=== PATIENT | female | born 2000 | race Caucasian/White ===

== ENCOUNTER 2021-05-06 11:54 | Emergency (ER) | payer BC ==
--- NOTE | 2021-05-06 12:14 | EDM.PDOC ---
ED HPI GENERAL MEDICAL PROBLEM - General Chief Complaint: Cardiovascular Problem Stated Complaint: ELEVATED HEART RATE Time Seen by Provider: 05/06/21 12:08 - History of Present Illness INITIAL COMMENTS - FREE TEXT/NARRATIVE: History of present illness: [] Patient is feeling of her heart fluttering for 2 days. Nothing makes it better or worse. She is short of breath worse with exertion. She has no diaphoresis or nausea. The patient says it feels like her heart flutters and it is almost constant including during the time in which she had her EKG done here. This make patient has chronic arthritis with medical marijuana card but does not smoke tobacco. She is not diabetic nor treated for hypertension or cholesterol. Family history is negative for significant arrhythmias. Review of systems: As per history of present illness and below otherwise all systems reviewed and negative. Past medical history: As per history of present illness and as reviewed below otherwise noncontributory. Surgical history: As per history of present illness and as reviewed below otherwise noncontributory. Social history: No reported history of drug or alcohol abuse. Family history: As per history of present illness and as reviewed below otherwise noncontributory. Physical exam: Constitutional - well developed, well-nourished and in no acute distress HEENT - normocephalic, no evidence of trauma - external nose and mouth normal - no mass in neck and no JVD - mucosae moist EYES - full EOM, PERRL, no icterus - no evidence of inflammation, injection, or drainage Respiratory - no respiratory distress, equal bilateral expansion, lungs clear to auscultation and no abnormal lung sounds Cardiovascular - Regular Rhythm with S1 and S2 appreciated and no murmur, gallop or rub. GI - abdomen soft without distension or organomegaly - normal bowel sounds - no guard or rebound Musculoskeletal no gross deformity of long bones or joints - no tenderness, swelling or edema Neurologic - Alert and oriented times four - CN II-XII grossly intact - motor sensory and coordination symmetrically normal Psychiatric - appropriate mood and affect with normal thought content Hematologic - No petechiae or purpura - mucosa appropriate color and sclera not pale - normal nail bed color and refill Integument - no rash or evidence of trauma - normal turgor Diagnostics: [] Therapeutics: [] Impression: [] Plan: [] Definitive disposition and diagnosis as appropriate pending reevaluation and review of above. - Related Data Allergies Allergy/AdvReac Type Severity Reaction Status Date / Time No Known Allergies Allergy Verified 05/06/21 12:06 Home Meds: Home Meds Levothyroxine [Synthroid] 1 tab PO ACBREAKFAST 05/06/21 [History] Omeprazole 1 tab PO DAILY 05/06/21 [History] Sertraline [Zoloft] 1 tab PO DAILY 05/06/21 [History] ED ROS GENERAL - Review of Systems Review Of Systems: Comprehensive ROS is negative, except as noted in HPI. ED EXAM, GENERAL - Physical Exam Exam: See Below Free Text/Narrative:: My physical exam is in the HPI #1 Interpretation EKG Interpretation Comments: KG done 05/06/2021 at 12:08 PM rhythm was misread by the computer as atrial fibrillation. Patient is in a sinus rhythm with a PVC. Heart rate 91 MO interval 160 QRS axis 81 QRS shows an RSR prime in V1 and V2 ST shows minimal depression which may be artifact because of baseline wander in V3. Impression no acute injury Course - Vital Signs Last Recorded V/S: Last Vital Signs Temp 36.4 C 05/06/21 12:10 Pulse 96 05/06/21 12:10 Resp 18 05/06/21 12:10 BP 120/75 05/06/21 12:10 Pulse Ox 97 05/06/21 12:10 - Orders/Labs/Meds Labs: Laboratory Tests 05/06/21 05/06/21 05/06/21 Range/Units 12:39 12:39 12:39 WBC 7.34 (4.0-11.0) K/uL RBC 4.96 (4.30-5.90) M/uL Hgb 15.2 (12.0-16.0) g/dL Hct 44.1 (36.0-46.0) % MCV 88.9 (80.0-98.0) fL MCH 30.6 (27.0-32.0) pg MCHC 34.5 (31.0-37.0) g/dL RDW Std Deviation 41.0 (28.0-62.0) fl RDW Coeff of Eve 13 (11.0-15.0) % Plt Count 275 (150-400) K/uL MPV 9.40 (7.40-12.00) fL Neut % (Auto) 61.2 (48.0-80.0) % Lymph % (Auto) 32.8 (16.0-40.0) % Gooding % (Auto) 4.8 (0.0-15.0) % Eos % (Auto) 1.1 (0.0-7.0) % Baso % (Auto) 0.1 (0.0-1.5) % Neut # (Auto) 4.5 (1.4-5.7) K/uL Lymph # (Auto) 2.4 (0.6-2.4) K/uL Gooding # (Auto) 0.4 (0.0-0.8) K/uL Eos # (Auto) 0.1 (0.0-0.7) K/uL Baso # (Auto) 0.0 (0.0-0.1) K/uL Nucleated RBC % 0.0 /100WBC Nucleated RBCs # 0 K/uL D-Dimer, Quantitative (0.0-0.50) mg/L FEU Sodium 138 (136-145) mmol/L Potassium 3.7 (3.5-5.1) mmol/L Chloride 103 (98-107) mmol/L Carbon Dioxide 27.3 (21.0-32.0) mmol/L BUN 11 (7.0-18.0) mg/dL Creatinine 0.8 (0.6-1.0) mg/dL Est Cr Clr Drug Dosing TNP Estimated GFR (MDRD) > 60.0 ml/min Glucose 108 H (74-106) mg/dL Calcium 8.7 (8.5-10.1) mg/dL Magnesium 2.0 (1.8-2.4) mg/dL Total Bilirubin 0.3 (0.2-1.0) mg/dL AST 14 L (15-37) IU/L ALT 18 (14-63) IU/L Alkaline Phosphatase 87 (46-116) U/L Troponin I < 0.050 (0.000-0.056) ng/mL Total Protein 7.5 (6.4-8.2) g/dL Albumin 3.6 (3.4-5.0) g/dL Globulin 3.9 (2.6-4.0) g/dL Albumin/Globulin Ratio 0.9 (0.9-1.6) TSH, Ultra Sensitive (0.36-3.74) uIU/mL HCG, Qual NEGATIVE (NEG) 05/06/21 05/06/21 Range/Units 12:39 12:39 WBC (4.0-11.0) K/uL RBC (4.30-5.90) M/uL Hgb (12.0-16.0) g/dL Hct (36.0-46.0) % MCV (80.0-98.0) fL MCH (27.0-32.0) pg MCHC (31.0-37.0) g/dL RDW Std Deviation (28.0-62.0) fl RDW Coeff of Eve (11.0-15.0) % Plt Count (150-400) K/uL MPV (7.40-12.00) fL Neut % (Auto) (48.0-80.0) % Lymph % (Auto) (16.0-40.0) % Gooding % (Auto) (0.0-15.0) % Eos % (Auto) (0.0-7.0) % Baso % (Auto) (0.0-1.5) % Neut # (Auto) (1.4-5.7) K/uL Lymph # (Auto) (0.6-2.4) K/uL Gooding # (Auto) (0.0-0.8) K/uL Eos # (Auto) (0.0-0.7) K/uL Baso # (Auto) (0.0-0.1) K/uL Nucleated RBC % /100WBC Nucleated RBCs # K/uL D-Dimer, Quantitative 0.34 (0.0-0.50) mg/L FEU Sodium (136-145) mmol/L Potassium (3.5-5.1) mmol/L Chloride (98-107) mmol/L Carbon Dioxide (21.0-32.0) mmol/L BUN (7.0-18.0) mg/dL Creatinine (0.6-1.0) mg/dL Est Cr Clr Drug Dosing Estimated GFR (MDRD) ml/min Glucose (74-106) mg/dL Calcium (8.5-10.1) mg/dL Magnesium (1.8-2.4) mg/dL Total Bilirubin (0.2-1.0) mg/dL AST (15-37) IU/L ALT (14-63) IU/L Alkaline Phosphatase (46-116) U/L Troponin I (0.000-0.056) ng/mL Total Protein (6.4-8.2) g/dL Albumin (3.4-5.0) g/dL Globulin (2.6-4.0) g/dL Albumin/Globulin Ratio (0.9-1.6) TSH, Ultra Sensitive 1.29 (0.36-3.74) uIU/mL HCG, Qual (NEG) Departure - Departure Time of Disposition: 13:34 Disposition: Home, Self-Care 01 Condition: Good Clinical Impression: Palpitations, Chest pain Instructions: Nonspecific Chest Pain, Adult, [id number], Palpitations Referrals: PCP,None [Primary Care Provider] - Forms: ED Department Discharge Additional Instructions: Make an appointment with primary care or cardiology so that you can follow-up on your Zio patch. Return if any prolonged significant worse symptoms. [facility] - Primary Care [address] [place] [address] [id number] [facility] - cardiology [address] [place] [id number] The following information is given to patients seen in the emergency department who are being discharged to home. This information is to outline your options for follow-up care. We provide all patients seen in our emergency department with a follow-up referral. The need for follow-up, as well as the timing and circumstances, are variable depending upon the specifics of your emergency department visit. If you don't have a primary care physician on staff, we will provide you with a referral. We always advise you to contact your personal physician following an emergency department visit to inform them of the circumstance of the visit and for follow-up with them and/or the need for any referrals to a consulting specialist. The emergency department will also refer you to a specialist when appropriate. This referral assures that you have the opportunity for follow-up care with a specialist. All of these measure are taken in an effort to provide you with optimal care, which includes your follow-up. Under all circumstances we always encourage you to contact your private physician who remains a resource for coordinating your care. When calling for follow-up care, please make the office aware that this follow-up is from your recent emergency room visit. If for any reason you are refused follow-up, please contact the [facility] Emergency Department at and asked to speak to the emergency department charge nurse. Sepsis Event Note (ED) - Focused Exam Vital Signs: Vital Signs Temp Pulse Resp BP Pulse Ox 05/06/21 12:10 36.4 C 96 18 120/75 97
[2021-05-06 13:14] LABS: BLOOD UREA NITROGEN,BUN 11 mg/dL (7.0-18.0); CARBON DIOXIDE,CO2 27.3 mmol/L (21.0-32.0); CHLORIDE,CL 103 mmol/L (98-107); GLUCOSE RANDOM 108 mg/dL (74-106); POTASSIUM,K 3.7 mmol/L (3.5-5.1); SODIUM,NA 138 mmol/L (136-145)
--- NOTE | 2021-05-06 13:21 | CR ---
INDICATION: Chest pressure. TECHNIQUE: Chest 1 view. COMPARISON: None FINDINGS: Cardiovascular and mediastinum: Heart size and vasculature are normal in caliber and appearance. Mediastinum is within normal limits. Lungs and pleural space: Lungs are clear. No sign of infiltrate or mass. No sign of pleural effusion. No pneumothorax. Bones and soft tissues: No significant findings. IMPRESSION: Lungs are clear. Dictated by Sai Marcelo MD @ 05/06/2021 1:18:56 PM (Electronically Signed)
== END 2021-05-06 13:51 | disposition home or self-care (01) ==
LOC: MW.ED 11:54
DX: R00.2 Palpitations (principal); R07.9 Chest pain, unspecified
CPT/HCPCS: 36415; 71045; 71045-26; 80053; 83735; 84443; 84484; 84703; 85025; 85379; 99285-25

== ENCOUNTER 2023-07-02 09:26 | Emergency (ER) | payer BC ==
[2023-07-02] MEDS ORDERED: Ondansetron 4 MG/2 ML SDV IVPUSH ONE (09:40)
[2023-07-02] MEDS ORDERED: Sodium Chloride 0.9% 1,000 ML IV ONE (09:40)
[2023-07-02 10:11] LABS: BASOPHILS ABSOLUTE AUTO 0.05 K/uL (0.00-0.20); BASOPHILS PERCENT AUTO 0.6 % (0.0-1.0); EOSINOPHILS ABSOLUTE AUTO 0.29 K/uL (0.00-0.45); EOSINOPHILS PERCENT AUTO 3.5 % (0.0-6.0); HEMATOCRIT 45.5 % (37.0-47.0); HEMOGLOBIN 16.3 g/dL (12.0-16.0); IMMATURE GRAN ABSOLUTE AUTO 0.03 K/uL (0.00-0.05); IMMATURE GRAN PERCENT AUTO 0.4 % (0.0-0.4); LYMPHOCYTES ABSOLUTE AUTO 2.89 K/uL (1.00-4.80); LYMPHOCYTES PERCENT AUTO 34.9 % (24.0-44.0); MEAN CORPUSCULAR HEMOGLOBIN 31.3 pg (28.0-32.0); MEAN CORPUSCULAR HGB CONC 35.8 g/dL (32.0-36.0); MEAN CORPUSCULAR VOLUME 87.5 fL (83.0-99.0); MEAN PLATELET VOLUME 9.1 fL (9.4-12.3); MONOCYTES ABSOLUTE AUTO 0.45 K/uL (0.00-0.80); MONOCYTES PERCENT AUTO 5.4 % (0.0-8.0); NEUTROPHILS ABSOLUTE AUTO 4.58 K/uL (1.80-7.70); NEUTROPHILS PERCENT AUTO 55.2 % (41.0-71.0); PLATELET COUNT,PLT 291 K/uL (150-400); WHITE BLOOD CELL COUNT,WBC 8.29 K/uL (3.9-11.3)
[2023-07-02 10:20] LABS: INR 1.02 (0.86-1.11)
[2023-07-02 10:29] LABS: BILIRUBIN,URINE NEGATIVE (NEGATIVE); COLOR,URINE YELLOW; GLUCOSE,URINE NEGATIVE (NEGATIVE); KETONES,URINE NEGATIVE (NEGATIVE); LEUKOCYTE ESTERASE,URINE SMALL (NEGATIVE); NITRITE,URINE NEGATIVE (NEGATIVE); OCCULT BLOOD,URINE LARGE (NEGATIVE); PROTEIN,URINE NEGATIVE (NEGATIVE)
[2023-07-02 10:44] LABS: APPEARANCE,URINE SLT CLOUDY; BACTERIA,URINE FEW (NEGATIVE); EPITHELIAL CELLS,URINE FEW (NONE-FEW); WBC,URINE 0-2 (0-5/HPF)
[2023-07-02 10:45] LABS: AMORPHOUS SEDIMENT,URINE FEW (NEGATIVE)
[2023-07-02 10:53] LABS: A/G RATIO 1.3 (0.9-1.6); ALBUMIN 4.4 g/dL (3.4-5.0); BILIRUBIN TOTAL 0.7 mg/dL (0.2-1.0); CALCIUM 9.6 mg/dL (8.5-10.1); CARBON DIOXIDE,CO2 26.2 mmol/L (21.0-32.0); CREATININE 0.9 mg/dL (0.6-1.0); EST CRCL DRUG DOSING (CG) 88.23 mL/min; POTASSIUM,K 3.3 mmol/L (3.5-5.1); PROTEIN TOTAL,TP 7.9 g/dL (6.4-8.2); TSH ULTRASENSITIVE 2.68 uIU/mL (0.36-3.74)
[2023-07-02 11:06] LABS: CORONAVIRUS COVID-19 NAA NEGATIVE (NEGATIVE); INFLUENZA A NAA NEGATIVE (NEGATIVE); INFLUENZA B NAA NEGATIVE (NEGATIVE); RESPIRATORY SYNCYTIAL VIR NAA NEGATIVE (NEGATIVE)
[2023-07-02 11:19] LABS: CANDIDA DNA PROBE NEGATIVE (NEGATIVE); GARDNERELLA DNA PROBE NEGATIVE (NEGATIVE); TRICHOMONAS DNA PROBE NEGATIVE (NEGATIVE)
[2023-07-02 12:04] LABS: C. TRACHOMATIS BY PCR NOT DETECTED; N. GONORRHOEAE BY PCR NOT DETECTED
== END 2023-07-02 12:48 | disposition home or self-care (01) ==
LOC: MW.ED 09:26
DX: R55 Syncope and collapse (principal); Z79.899 Other long term (current) drug therapy; Z20.822 Contact with and (suspected) exposure to COVID-19
CPT/HCPCS: 0241U; 36415; 80053; 81001; 83690; 84443; 84703; 85025; 85610; 86850; 86900; 86901; 87086; 87480; 87491; 87510; 87591; 87660; 93005; 96361; 96374; 99284; J2405; J7030

== ENCOUNTER 2024-04-06 15:06 | Emergency (ER) | payer BC ==
[2024-04-06] MEDS: Sodium Chloride 0.9% 1,000 ML IV ONE (15:27)
[2024-04-06] MEDS: Famotidine 20 MG/2 ML SDV IVPUSH ONE (15:27)
[2024-04-06] MEDS: diphenhydrAMINE 50 MG/ML SDV IVPUSH ONE (15:27)
[2024-04-06 15:28] LABS: BASOPHILS ABSOLUTE AUTO 0.02 K/uL (0.00-0.20); BASOPHILS PERCENT AUTO 0.2 % (0.0-1.0); EOSINOPHILS ABSOLUTE AUTO 0.05 K/uL (0.00-0.45); EOSINOPHILS PERCENT AUTO 0.5 % (0.0-6.0); HEMATOCRIT 34.8 % (37.0-47.0); HEMOGLOBIN 12.4 g/dL (12.0-16.0); IMMATURE GRAN ABSOLUTE AUTO 0.08 K/uL (0.00-0.05); IMMATURE GRAN PERCENT AUTO 0.8 % (0.0-0.4); LYMPHOCYTES ABSOLUTE AUTO 2.16 K/uL (1.00-4.80); LYMPHOCYTES PERCENT AUTO 21.6 % (24.0-44.0); MEAN CORPUSCULAR HEMOGLOBIN 31.6 pg (28.0-32.0); MEAN CORPUSCULAR HGB CONC 35.6 g/dL (32.0-36.0); MEAN CORPUSCULAR VOLUME 88.5 fL (83.0-99.0); MEAN PLATELET VOLUME 9.8 fL (9.4-12.3); MONOCYTES ABSOLUTE AUTO 0.56 K/uL (0.00-0.80); MONOCYTES PERCENT AUTO 5.6 % (0.0-8.0); NEUTROPHILS ABSOLUTE AUTO 7.15 K/uL (1.80-7.70); NEUTROPHILS PERCENT AUTO 71.3 % (41.0-71.0); PLATELET COUNT,PLT 214 K/uL (150-400); RED BLOOD CELL COUNT 3.93 M/uL (4.10-5.30); WHITE BLOOD CELL COUNT,WBC 10.02 K/uL (3.9-11.3)
[2024-04-06 15:57] LABS: A/G RATIO 0.7 (0.9-1.6); ALBUMIN 2.5 g/dL (3.4-5.0); BILIRUBIN TOTAL 0.3 mg/dL (0.2-1.0); CALCIUM 8.7 mg/dL (8.5-10.1); CREATININE 0.8 mg/dL (0.6-1.0); EST CRCL DRUG DOSING (CG) 98.41 mL/min; POTASSIUM,K 3.4 mmol/L (3.5-5.1)
[2024-04-06 16:06] LABS: CARBON DIOXIDE,CO2 23.4 mmol/L (21.0-32.0)
== END 2024-04-06 17:00 | disposition home or self-care (01) ==
LOC: MW.ED 15:06
DX: O99.713 Diseases of the skin and subcutaneous tissue complicating pregnancy, third trimester (principal); T63.441A Toxic effect of venom of bees, accidental (unintentional), initial encounter; Z79.899 Other long term (current) drug therapy; Z91.030 Bee allergy status; Z3A.32 32 weeks gestation of pregnancy
CPT/HCPCS: 36415; 80053; 85025; 96361; 96374; 96375; 99283; J1200; J3490; J7030; 99284

== ENCOUNTER 2024-05-08 21:40 | Inpatient (IN) | payer BC ==
[2024-05-08] MEDS ORDERED: Sodium Chloride 0.9% 2.5 ML Syringe FLUSH PRN (22:16)
[2024-05-08] MEDS ORDERED: Sodium Chloride 0.9% 10 ML Syringe FLUSH PRN (22:16)
[2024-05-08] MEDS ORDERED: Terbutaline 1 MG/ML SDV SUBCUT PRN (22:16)
[2024-05-08] MEDS ORDERED: Calcium Gluconate 10% 1 GM/10 ML SDV IV PRN (22:16)
[2024-05-08] MEDS ORDERED: Sodium Chloride 0.9% 20 ML SDV IV PRN (22:16)
[2024-05-08] MEDS ORDERED: Lidocaine 1% 50 ML MDV INJECT PRN (22:27)
[2024-05-08] MEDS ORDERED: Water For Irrigation,Sterile 1,000 ML Container IRR PRN (22:27)
[2024-05-08] MEDS ORDERED: Butorphanol 2 MG/ML SDV IVPUSH PRN (22:27)
[2024-05-08] MEDS ORDERED: Misoprostol 200 MCG Tab PO PRN (22:27)
[2024-05-08] MEDS ORDERED: Carboprost Tromethamine 250 MCG/1 mL Vial IM PRN (22:27)
[2024-05-08] MEDS ORDERED: Ondansetron 4 MG/2 ML SDV IVPUSH PRN (22:27)
[2024-05-08] MEDS ORDERED: Oxytocin/0.9 % Sodium Chloride 30 UNIT/500 ML BAG IV SCH (22:30)
[2024-05-08] MEDS ORDERED: Nalbuphine 10 MG/1 ML Vial IVPUSH ONE (22:31)
[2024-05-08] MEDS: Lactated Ringers 1,000 ML IV SCH (23:24)
[2024-05-08] MEDS: Ampicillin 2 GM in Sodium Chloride 0.9% 100 ML IV ONE (23:24)
[2024-05-08] MEDS: Misoprostol 25 MCG (1/4 of 100 MCG) Tab VAG PRN (23:59)
[2024-05-09] MEDS ORDERED: Acetaminophen 325 MG Tab PO PRN (00:02)
[2024-05-09 00:07] LABS: BASOPHILS ABSOLUTE AUTO 0.05 K/uL (0.00-0.20); BASOPHILS PERCENT AUTO 0.4 % (0.0-1.0); EOSINOPHILS ABSOLUTE AUTO 0.05 K/uL (0.00-0.45); EOSINOPHILS PERCENT AUTO 0.4 % (0.0-6.0); HEMOGLOBIN 12.7 g/dL (12.0-16.0); IMMATURE GRAN ABSOLUTE AUTO 0.28 K/uL (0.00-0.05); IMMATURE GRAN PERCENT AUTO 2.3 % (0.0-0.4); LYMPHOCYTES ABSOLUTE AUTO 3.02 K/uL (1.00-4.80); LYMPHOCYTES PERCENT AUTO 24.7 % (24.0-44.0); MEAN CORPUSCULAR HEMOGLOBIN 31.4 pg (28.0-32.0); MEAN CORPUSCULAR HGB CONC 35.3 g/dL (32.0-36.0); MEAN CORPUSCULAR VOLUME 89.1 fL (83.0-99.0); MEAN PLATELET VOLUME 10.7 fL (9.4-12.3); MONOCYTES PERCENT AUTO 5.7 % (0.0-8.0); NEUTROPHILS ABSOLUTE AUTO 8.14 K/uL (1.80-7.70); NEUTROPHILS PERCENT AUTO 66.5 % (41.0-71.0); PLATELET COUNT,PLT 218 K/uL (150-400); RED BLOOD CELL COUNT 4.04 M/uL (4.10-5.30); WHITE BLOOD CELL COUNT,WBC 12.24 K/uL (3.9-11.3)
[2024-05-09] MEDS: Magnesium Sulfate/Water Premix 4 GM in Premix Bag 1 BAG IV ONE (00:19)
[2024-05-09] MEDS: Magnesium Sulfate/Water Premix 20 GM/500 ML BAG IV SCH (00:38)
[2024-05-09 00:40] LABS: A/G RATIO 0.9 (0.9-1.6); ALANINE AMINOTRANSFERASE,ALT 16 IU/L (14-63); ALBUMIN 2.7 g/dL (3.4-5.0); ALKALINE PHOSPHATASE 121 U/L (46-116); ASPARTATE AMNIOTRANSFERASE,AST 16 IU/L (15-37); BILIRUBIN TOTAL 0.2 mg/dL (0.2-1.0); BLOOD UREA NITROGEN,BUN 14 mg/dL (7.0-18.0); CALCIUM 9.2 mg/dL (8.5-10.1); CARBON DIOXIDE,CO2 24.7 mmol/L (21.0-32.0); CHLORIDE,CL 106 mmol/L (98-107); CREATININE 0.9 mg/dL (0.6-1.0); GLUCOSE RANDOM 76 mg/dL (74-106); LACTATE DEHYDROGENASE,LDH 162 U/L (81-234); POTASSIUM,K 4.1 mmol/L (3.5-5.1); PROTEIN TOTAL,TP 5.8 g/dL (6.4-8.2); SODIUM,NA 138 mmol/L (136-145); URIC ACID 1.8 mg/dL (2.6-7.2)
[2024-05-09 00:47] LABS: ESTIMATED GFR 92 mL/min (>60)
[2024-05-09 00:51] LABS: CREATININE,URINE RAND 111.4 mg/dL; PROTEIN CREATININE RATIO,URINE 1.7; PROTEIN,URINE RANDOM 194.2 mg/dL (<11.9)
[2024-05-09] MEDS: Calcium Carbonate 500 MG Tab.Chew PO PRN (01:42)
[2024-05-09] MEDS: Acetaminophen 325 MG Tab PO PRN (01:43)
[2024-05-09] MEDS: Ampicillin 1 GM in Sodium Chloride 0.9% 50 ML IV SCH (04:12)
[2024-05-09] MEDS: Misoprostol 25 MCG (1/4 of 100 MCG) Tab VAG PRN (04:14)
[2024-05-09] MEDS: Labetalol 100 MG Tab PO SCH (10:30)
[2024-05-09] MEDS ORDERED: ePHEDrine 50 MG/ML SDV IVPUSH PRN (12:33)
[2024-05-09] MEDS ORDERED: Phenylephrine HCl In 0.9% NaCl 1 MG/10 ML Syringe IVPUSH PRN (12:33)
[2024-05-09] MEDS ORDERED: ePHEDrine 50 MG/ML SDV IM PRN (12:34)
[2024-05-09] MEDS ORDERED: dexmedeTOMIDine HCl 200 MCG/2 ML SDV EPIDUR SCH (12:45)
[2024-05-09] MEDS: Ropivacaine HCl/PF 400 MG in Premix Bag 1 BAG EPIDUR SCH (12:45)
[2024-05-09] MEDS: Bupivacaine 0.5% 10 ML SDV INJECT ONE (13:20)
[2024-05-09] MEDS: Ampicillin 1 GM Vial ONE (13:20)
[2024-05-09] MEDS: Bupivacaine 0.5% 10 ML SDV ONE (13:21)
[2024-05-09] MEDS: Phenylephrine HCl In 0.9% NaCl 1 MG/10 ML Syringe ONE (13:21)
[2024-05-09] MEDS: Ropivacaine HCl/PF 200 ML ONE (13:21)
[2024-05-09] MEDS: Oxytocin/0.9 % Sodium Chloride 30 UNIT/500 ML BAG IV SCH (13:33)
[2024-05-09] MEDS: Lactated Ringers 1,000 ML IV SCH (13:43)
[2024-05-09] MEDS ORDERED: Acetaminophen 500 MG Tab PO PRN (15:44)
[2024-05-09] MEDS ORDERED: Simethicone 80 MG Tab.Chew PO PRN (15:44)
[2024-05-09] MEDS ORDERED: Ibuprofen 800 MG Tab PO PRN (15:44)
[2024-05-09] MEDS ORDERED: Docusate Sodium 100 MG Cap PO PRN (15:44)
[2024-05-09] MEDS ORDERED: Misoprostol 200 MCG Tab PO PRN (15:48)
[2024-05-09 16:50] LABS: PH,UMBILICAL ARTERIAL 7.038 (7.18-7.38)
[2024-05-09] MEDS: Witch Hazel Medicated Pads 40/Jar TOP PRN (21:18)
[2024-05-09] MEDS: Benzocaine/Menthol 20%-0.5% Spray 78 GM Cannister TOP PRN (21:20)
[2024-05-09] MEDS: Lanolin 100% Cream 7 GM Tube TOP PRN (21:20)
[2024-05-10 08:21] LABS: HEMATOCRIT 31.6 % (37.0-47.0); MEAN CORPUSCULAR HEMOGLOBIN 31.3 pg (28.0-32.0); MEAN CORPUSCULAR HGB CONC 34.8 g/dL (32.0-36.0); MEAN CORPUSCULAR VOLUME 89.8 fL (83.0-99.0); MEAN PLATELET VOLUME 9.6 fL (9.4-12.3); PLATELET COUNT,PLT 164 K/uL (150-400); RED BLOOD CELL COUNT 3.52 M/uL (4.10-5.30); WHITE BLOOD CELL COUNT,WBC 12.29 K/uL (3.9-11.3)
[2024-05-10] MEDS: Prenatal Multivitamin with Calcium/Folic Acid/Iron Tab PO SCH (09:23)
[2024-05-10] MEDS: Ferrous Sulfate 325 MG Tab PO SCH (09:23)
== END 2024-05-11 12:45 | disposition home or self-care (01) | DRG 560 ==
LOC: MW.OBCHECK 21:40 → MW.OB 21:40 → MW.OBCHECK 22:16 → OBSVTOIN 05-09 16:00 → MW.OB 05-09 21:00
PROVIDERS: ADMIT Obstetrics & Gynecology; ATTEND Obstetrics & Gynecology
PROC: 10E0XZZ Delivery of Products of Conception, External Approach (ICD-10-PCS; principal; 2024-05-09)
PROC: 0UQMXZZ Repair Vulva, External Approach (ICD-10-PCS; 2024-05-09)
PROC: 3E0P7VZ Introduction of Hormone into Female Reproductive, Via Natural or Artificial Opening (ICD-10-PCS; 2024-05-09)
PROC: 10907ZC Drainage of Amniotic Fluid, Therapeutic from Products of Conception, Via Natural or Artificial Opening (ICD-10-PCS; 2024-05-09)
DX: O14.14 Severe pre-eclampsia complicating childbirth (principal); Z3A.37 37 weeks gestation of pregnancy; Z37.0 Single live birth; O99.344 Other mental disorders complicating childbirth; F41.9 Anxiety disorder, unspecified; F32.A Depression, unspecified; O99.824 Streptococcus B carrier state complicating childbirth; O77.0 Labor and delivery complicated by meconium in amniotic fluid; O90.81 Anemia of the puerperium; D62 Acute posthemorrhagic anemia; O71.82 Other specified trauma to perineum and vulva
CPT/HCPCS: 01967; 36415; 51702; 59025; 59409; 80053; 82570; 82803; 83615; 83735; 84156; 84550; 85025; 85027; 86592; 86850; 86900; 86901; A9270-GY; J0290; J0665; J2371; J2590; J2795; J3475; J3490; J7120